=== PATIENT | female | born 1980 | race Caucasian/White ===

== ENCOUNTER 2016-10-03 19:08 | Emergency (ER) | payer MEDICAID, OTHER ==
[2016-10-03] MEDS ORDERED: IPRATROPIUM/ALBUTEROL 3 ML NEB INH STA (19:26)
[2016-10-03] MEDS ORDERED: predniSONE 20 MG TABLET PO STA (19:26)
[2016-10-03] MEDS ORDERED: predniSONE 20 MG TABLET ONE (19:38)
[2016-10-03] MEDS ORDERED: IPRATROPIUM/ALBUTEROL 3 ML NEB INH ONE (19:57)
== END 2016-10-03 20:34 | disposition home or self-care (01) ==
DX: J40 Bronchitis, not specified as acute or chronic (principal); R03.0 Elevated blood-pressure reading, without diagnosis of hypertension
CPT/HCPCS: 94640; 99283; 99284; J7512; J7620

== ENCOUNTER 2016-10-12 | Outpatient (CLI) | payer OTHER | END 2016-10-12 12:17 | disposition short-term general hospital (02) | DX: J96.90 Respiratory failure, unspecified, unspecified whether with hypoxia or hypercapnia (principal) | CPT/HCPCS: A0170; A0425; A0434 ==

== ENCOUNTER 2016-10-12 07:23 | Emergency (ER) | payer OTHER ==
[2016-10-12] MEDS ORDERED: ROCURONIUM 50 MG/5 ML VIAL IVP ONE (07:38)
[2016-10-12] MEDS ORDERED: KETAMINE 500 MG/10 ML VIAL ONE (07:38)
[2016-10-12] MEDS: ALBUTEROL NEB 2.5 MG/3 ML INH STA ×2 (07:40→07:45)
[2016-10-12] MEDS ORDERED: KETAMINE 500 MG/10 ML VIAL IVP STA (07:53)
[2016-10-12] MEDS ORDERED: ROCURONIUM 50 MG/5 ML VIAL IVP STA (07:53)
[2016-10-12] MEDS ORDERED: PROPOFOL 1000 MG/100 ML 100 ML IV ONE ×2 (07:53→10:35)
[2016-10-12] MEDS ORDERED: SODIUM CHLORIDE 0.9% 1,000 ML IV ONE ×3 (07:55→09:25)
[2016-10-12] MEDS ORDERED: methylPREDNISolone SUCCINATE 125 MG/2 ML VIAL IVP STA (07:55)
[2016-10-12] MEDS ORDERED: PROPOFOL 1000 MG/100 ML 100 ML IV STA (07:56)
[2016-10-12] MEDS ORDERED: methylPREDNISolone SUCCINATE 125 MG/2 ML VIAL IVP ONE (07:58)
[2016-10-12] MEDS ORDERED: ALBUTEROL NEB 2.5 MG/3 ML INH ONE ×3 (08:04→08:18)
[2016-10-12] MEDS ORDERED: ALBUTEROL NEB 2.5 MG/3 ML INH STA ×2 (08:18→08:44)
[2016-10-12] MEDS ORDERED: WATER FOR INJECTION,STERILE 10 ML ONE ×3 (08:52→11:39)
[2016-10-12] MEDS ORDERED: VECURONIUM 10 MG VIAL ONE ×3 (08:52→11:39)
[2016-10-12] MEDS ORDERED: VECURONIUM 10 MG VIAL IVP STA ×3 (08:55→11:39)
[2016-10-12] MEDS ORDERED: PIPERACILLIN/TAZOBACTAM 4.5 GM in SODIUM CHLORIDE 0.9% MINIBAG 100 ML IV STA (09:14)
[2016-10-12] MEDS ORDERED: VANCOMYCIN INJ 2 GM in SODIUM CHLORIDE 0.9% 500 ML IV STA (09:14)
[2016-10-12] MEDS ORDERED: IPRATROPIUM/ALBUTEROL 3 ML NEB INH STA (10:47)
[2016-10-12] MEDS ORDERED: IPRATROPIUM/ALBUTEROL 3 ML NEB INH ONE (11:09)
== END 2016-10-12 12:10 | disposition short-term general hospital (02) ==
DX: J96.01 Acute respiratory failure with hypoxia (principal); J96.02 Acute respiratory failure with hypercapnia
CPT/HCPCS: 31500; 36415; 36600; 51702; 71010; 80053; 81001; 81025; 82803; 83605; 83690; 85025; 87040; 87086; 87275; 87276; 93005; 93010; 94640; 96361; 96365; 96367; 96375; 96376; 99291; J3370; J7613; J7620

== ENCOUNTER 2016-11-25 12:08 | Outpatient (CLI) | payer OTHER | END 2016-11-25 12:09 | disposition home or self-care (01) | DX: R05 Cough (principal) ==

== ENCOUNTER 2016-12-01 08:30 | Outpatient (CLI) | payer OTHER ==
[2016-12-01] MEDS ORDERED: ALBUTEROL NEB 2.5 MG/3 ML INH ONE (09:24)
== END 2016-12-01 08:31 | disposition home or self-care (01) ==
DX: R06.2 Wheezing (principal)
CPT/HCPCS: 94060; J7613

== ENCOUNTER 2018-05-03 19:35 | Emergency (ER) | payer OTHER ==
--- NOTE | 2018-05-03 21:16 | ED Physician Documentation ---
PD HPI LOWER EXT INJURY - Stated complaint Stated Complaint: LT FOOT INJ - Chief complaint Chief Complaint: Laceration - History obtained from History obtained from: Patient - History of Present Illness PD HPI LOW EXT INJURY LOCATION: Left, Foot Type of injury: Laceration Where injury occurred: Home Timing - onset: Today Timing - details: Abrupt onset Worsened by: Moving, Palpating Similar symptoms before: Has not had sx before Recently seen: Not recently seen - Additional information Additional information: Patient is a 37 year old female with no significant past medical history who is presenting to the emergency department for foot laceration. patient states that she dropped a salad chef's knife on her foot today causing a small lac. Patient is up to date on his tetanus. Review of Systems Ten Systems: 10 systems reviewed and negative Skin: reports: Laceration (s) PD PAST MEDICAL HISTORY - Past Surgical History Past Surgical History: No - Present Medications Home Medications: Ambulatory Orders Medication Instructions Recorded Confirmed Sulfamethoxazole/Trimethoprim 1 each PO BID #14 tablet 08/05/14 08/06/14 [Bactrim Ds Tablet] cephALEXin [Keflex] 500 mg PO Q6H #28 capsule 08/05/14 08/06/14 predniSONE [Deltasone] 60 mg PO DAILY 5 Days tablet 10/03/16 - Allergies Allergies/Adverse Reactions: Allergies Allergy/AdvReac Type Severity Reaction Status Date / Time No Known Drug Allergies Allergy Verified 08/06/14 08:37 - Social History Does the pt smoke?: No Smoking Status: Never smoker Does the pt drink ETOH?: Yes Does the pt have substance abuse?: No - Immunizations Immunizations are current?: Yes - POLST Patient has POLST: No PD ED PE NORMAL - Vitals Vital signs reviewed: Yes - General General: Alert and oriented X 3 - HEENT HEENT: Atraumatic - Cardiac Cardiac: RRR - Respiratory Respiratory: No respiratory distress - Neuro Neuro: Alert and oriented X 3 Eye Opening: Spontaneous PD ED PE EXPANDED - Extremities Extremities: Left foot (0.7mm lacertation) Feet visual: 1 - laceration Results - Vitals Vitals: Vital Signs - 24 hr 05/03/18 19:51 Temperature 36.6 C Heart Rate 78 Respiratory 16 Rate Blood Pressure 135/94 H O2 Saturation 99 Oxygen O2 Source Room air Procedures - Laceration (location) left foot Length in cm: 0.7 Wound type: Linear Neurovascular status: Sensory intact, Motor intact, Vascular intact Wound Preparation: Irrigated copiously NS Skin layer closure: Dermabond Other: Tetanus UTD Complexity: Simple PD MEDICAL DECISION MAKING - ED course Complexity details: reviewed old records, re-evaluated patient, d/w patient ED course: Patient was seen and examined at bedside. patient was well appearing and in no distress. Patient's laceration was repaired with dermabond. patient required no further work up and was stable for discharge with outpatient follow up. - Sepsis Event Vital Signs: Vital Signs - 24 hr 05/03/18 19:51 Temperature 36.6 C Heart Rate 78 Respiratory 16 Rate Blood Pressure 135/94 H O2 Saturation 99 Oxygen O2 Source Room air Departure - Departure Disposition: 01 Home, Self Care Clinical Impression: Laceration Condition: Good Instructions: ED Laceration Small Superf No Sutr Follow-Up: Manpreet Snyder DO [Primary Care Provider] - Comments: Please keep the laceration clean and dry. You should not scrub the the glue or else it will fall off quickly. You should monitor for signs of infection. You can use ice, motrin, and tylenol as needed for pain.
[2018-05-03 21:29] VITALS: BP 143/87
== END 2018-05-03 21:30 | disposition home or self-care (01) ==
LOC: ED 19:35
DX: S91.312A Laceration without foreign body, left foot, initial encounter (principal); W22.8XXA Striking against or struck by other objects, initial encounter; W26.0XXA Contact with knife, initial encounter; Y92.009 Unspecified place in unspecified non-institutional (private) residence as the place of occurrence of the external cause
CPT/HCPCS: 12001; 99282; 99283

== ENCOUNTER 2020-08-15 08:21 | Outpatient (CLI) | payer OTHER ==
[2020-08-15 09:17] LABS: BASOPHILS % (AUTO) 0.8 %; EOSINOPHILS # (AUTO) 0.1 10^3/uL (0.0-0.7); EOSINOPHILS % (AUTO) 1.7 %; HGB - HEMOGLOBIN 13.2 g/dL (12.0-16.0); LYMPHOCYTES # (AUTO) 1.7 10^3/uL (1.5-3.5); LYMPHOCYTES % (AUTO) 32.7 %; MEAN CORPUSCULAR HEMOGLOBIN 29.8 pg (27.0-31.0); MEAN CORPUSCULAR HGB CONC 32.2 g/dL (32.0-36.0); MEAN CORPUSCULAR VOLUME 92.6 fL (81.0-99.0); MEAN PLATELET VOLUME 9.6 fL (7.9-10.8); MONOCYTES # (AUTO) 0.3 10^3/uL (0.0-1.0); MONOCYTES % (AUTO) 6.4 %; NEUTROPHILS # (AUTO) 3.1 10^3/uL (1.5-6.6); NEUTROPHILS % (AUTO) 58.2 %; PLT - PLATELET COUNT 260 10^3/uL (130-450); RED BLOOD COUNT 4.43 10^6/uL (4.20-5.40); RED CELL DISTRIBUTION WIDTH 11.9 % (12.0-15.0); WHITE BLOOD COUNT 5.3 x10^3/uL (4.8-10.8)
[2020-08-15 09:32] LABS: ALBUMIN 3.8 g/dL (3.2-5.5); ALBUMIN/GLOBULIN RATIO 1.3 (1.0-2.2); ALKALINE PHOSPHATASE 56 IU/L (42-121); ALT ALANINE AMINOTRANSFERASE 17 IU/L (10-60); AST ASPARTATE AMINOTRANSFERASE 16 IU/L (10-42); BILIRUBIN,TOTAL 0.7 mg/dL (0.2-1.0); BUN - BLOOD UREA NITROGEN 16 mg/dL (6-20); CALCIUM 8.7 mg/dL (8.5-10.3); CARBON DIOXIDE - CO2 25 mmol/L (21-32); CHLORIDE 103 mmol/L (101-111); CHOL/HDL RATIO 4.5 (<4.4); CHOLESTEROL 209 mg/dL; CREATININE 0.8 mg/dL (0.4-1.0); GLUCOSE 98 mg/dL (70-100); HDL CHOLESTEROL 46 mg/dL; LDL CHOLESTEROL,CALCULATED 126 mg/dL; LDL/HDL RATIO 2.7 (<4.4); SODIUM 137 mmol/L (135-145); TOTAL PROTEIN 6.8 g/dL (6.7-8.2); VLDL CHOLESTEROL 37 mg/dL
[2020-08-15 09:44] LABS: THYROID STIMULATING HORMONE 0.84 uIU/mL (0.34-5.60)
[2020-08-15 09:46] LABS: FREE T3 3.63 pg/mL (2.5-3.9); FREE T4 (FREE THYROXINE) 0.92 ng/dL (0.58-1.64)
== END 2020-08-15 08:22 | disposition home or self-care (01) ==
LOC: LAB 08:21
PROVIDERS: ATTEND Nurse Practitioner
DX: Z13.29 Encounter for screening for other suspected endocrine disorder (principal); Z13.220 Encounter for screening for lipoid disorders; Z13.228 Encounter for screening for other metabolic disorders; L65.9 Nonscarring hair loss, unspecified
CPT/HCPCS: 36415; 80053; 80061; 83721; 84403; 84439; 84443; 84481; 85025

== ENCOUNTER 2021-07-03 15:19 | Outpatient (CLI) | payer BC ==
--- NOTE | 2021-07-03 17:43 | Ultrasound Report ---
PROCEDURE: Duplex Ext Veins Left INDICATIONS: THROMBOPHLEBITIS TECHNIQUE: Real-time imaging, as well as color and pulse Doppler interrogation, were performed of the lower extr emity deep veins from the inguinal ligament to the popliteal fossa. COMPARISON: None. FINDINGS: The deep veins are normally compressible, and free of intraluminal thrombus. Color and pu lse Doppler demonstrate normal phasic intraluminal flow. There is normal augmentation response to di stal compression maneuver. At the area of clinical concern, nonocclusive superficial venous varicosities can be seen. IMPRESSION: No findings of deep venous thrombosis are seen. Nonocclusive superficial venous varicosities can be seen at the site of clinical concern. Reviewed by: Zaire Ramirez MD on 07/03/2021 4:42 PM [facility] Approved by: Zaire Ramirez MD on 07/03/2021 4:42 PM [facility] Station ID: [id number]
== END 2021-07-03 15:20 | disposition home or self-care (01) ==
LOC: DI 15:19
PROVIDERS: ATTEND Family Medicine
DX: I80.3 Phlebitis and thrombophlebitis of lower extremities, unspecified (principal); I83.92 Asymptomatic varicose veins of left lower extremity

== ENCOUNTER 2023-03-09 10:15 | Outpatient (CLI) | payer BC ==
[2023-03-09 10:32] LABS: BASOPHILS # (AUTO) 0.1 10^3/uL (0.0-0.1); BASOPHILS % (AUTO) 0.7 %; EOSINOPHILS # (AUTO) 0.1 10^3/uL (0.0-0.7); EOSINOPHILS % (AUTO) 1.3 %; HCT - HEMATOCRIT 38.5 % (37.0-47.0); HGB - HEMOGLOBIN 13.1 g/dL (12.0-16.0); LYMPHOCYTES # (AUTO) 1.8 10^3/uL (1.5-3.5); LYMPHOCYTES % (AUTO) 23.4 %; MEAN CORPUSCULAR HEMOGLOBIN 29.8 pg (27.0-31.0); MEAN CORPUSCULAR VOLUME 87.7 fL (81.0-99.0); MEAN PLATELET VOLUME 9.6 fL (7.9-10.8); MONOCYTES # (AUTO) 0.4 10^3/uL (0.0-1.0); MONOCYTES % (AUTO) 5.7 %; NEUTROPHILS # (AUTO) 5.1 10^3/uL (1.5-6.6); NEUTROPHILS % (AUTO) 68.6 %; PLT - PLATELET COUNT 273 10^3/uL (130-450); RED BLOOD COUNT 4.39 10^6/uL (4.20-5.40); WHITE BLOOD COUNT 7.5 x10^3/uL (4.8-10.8)
[2023-03-09 10:52] LABS: % IRON SATURATION 35 % (20-50); ALBUMIN/GLOBULIN RATIO 1.2 (1.0-2.2); ALKALINE PHOSPHATASE 55 IU/L (42-121); ALT ALANINE AMINOTRANSFERASE 19 IU/L (10-60); AST ASPARTATE AMINOTRANSFERASE 18 IU/L (10-42); BILIRUBIN,TOTAL 0.9 mg/dL (0.2-1.0); BUN - BLOOD UREA NITROGEN 13 mg/dL (6-20); CALCIUM 9.1 mg/dL (8.5-10.3); CARBON DIOXIDE - CO2 29 mmol/L (21-32); CHLORIDE 101 mmol/L (101-111); CHOL/HDL RATIO 4.7 (<4.4); CHOLESTEROL 210 mg/dL; CREATININE 0.8 mg/dL (0.4-1.0); GFR - MDRD 79 (>89); GLUCOSE 105 mg/dL (70-100); HDL CHOLESTEROL 45 mg/dL; IRON 115 ug/dL (28-170); LDL CHOLESTEROL,CALCULATED 124 mg/dL; LDL/HDL RATIO 2.8 (<4.4); POTASSIUM 3.3 mmol/L (3.5-5.0); SODIUM 137 mmol/L (135-145); TOTAL IRON BINDING CAPACITY 333 ug/dL (250-450); TOTAL PROTEIN 7.3 g/dL (6.7-8.2); TRANSFERRIN 238 mg/dL (192-382); TRIGLYCERIDES 207 mg/dL; VLDL CHOLESTEROL 41 mg/dL
[2023-03-09 11:03] LABS: FREE T3 3.08 pg/mL (2.5-3.9); THYROID STIMULATING HORMONE 0.64 uIU/mL (0.34-5.60)
[2023-03-09 11:04] LABS: FREE T4 (FREE THYROXINE) 1.1 ng/dL (0.58-1.64)
[2023-03-09 11:09] LABS: FERRITIN 62.6 ng/mL (11.0-306.8)
[2023-03-09 12:02] LABS: ESTIMATED AVERAGE GLUCOSE 114 mg/dL (70-100); HEMOGLOBIN A1c% 5.6 % (4.27-6.07)
[2023-03-10 06:10] LABS: VITAMIN D 25-HYDROXY 14.3 ng/mL (30.0-100.0)
[2023-03-10 16:08] LABS: FREE TESTOSTERONE(DIRECT) 1.9 pg/mL (0.0-4.2)
== END 2023-03-09 10:16 | disposition home or self-care (01) ==
LOC: LAB 10:15
PROVIDERS: ATTEND Physician Assistant
DX: L65.9 Nonscarring hair loss, unspecified (principal); Z13.9 Encounter for screening, unspecified; Z86.32 Personal history of gestational diabetes
CPT/HCPCS: 36415; 80053; 80061; 82306; 82626; 82728; 83036; 83540; 83721; 84402; 84403; 84439; 84443; 84466; 84481; 85025

== ENCOUNTER 2023-08-29 07:38 | Outpatient (CLI) | payer OTHER | END 2023-08-29 07:39 | disposition home or self-care (01) | LOC: LAB 07:38 | PROVIDERS: ATTEND Physician Assistant | DX: E55.9 Vitamin D deficiency, unspecified (principal) | CPT/HCPCS: 36415; 82306 ==

== ENCOUNTER 2024-02-17 14:04 | Outpatient (CLI) | payer OTHER | END 2024-02-17 14:05 | disposition home or self-care (01) | LOC: LAB 14:04 | PROVIDERS: ATTEND Physician Assistant | DX: E55.9 Vitamin D deficiency, unspecified (principal) | CPT/HCPCS: 36415; 82306 ==

== ENCOUNTER 2024-03-09 07:21 | Outpatient (CLI) | payer OTHER ==
[2024-03-09 07:41] LABS: BASOPHILS % (AUTO) 0.6 %; EOSINOPHILS # (AUTO) 0.1 10^3/uL (0.0-0.7); EOSINOPHILS % (AUTO) 2.1 %; HCT - HEMATOCRIT 39.8 % (37.0-47.0); HGB - HEMOGLOBIN 12.9 g/dL (12.0-16.0); LYMPHOCYTES % (AUTO) 30.3 %; MEAN CORPUSCULAR HEMOGLOBIN 30.2 pg (27.0-31.0); MEAN CORPUSCULAR HGB CONC 32.4 g/dL (32.0-36.0); MEAN CORPUSCULAR VOLUME 93.2 fL (81.0-99.0); MEAN PLATELET VOLUME 9.6 fL (7.9-10.8); MONOCYTES # (AUTO) 0.4 10^3/uL (0.0-1.0); MONOCYTES % (AUTO) 5.7 %; NEUTROPHILS # (AUTO) 4.1 10^3/uL (1.5-6.6); NEUTROPHILS % (AUTO) 61.1 %; PLT - PLATELET COUNT 267 10^3/uL (130-450); RED BLOOD COUNT 4.27 10^6/uL (4.20-5.40); RED CELL DISTRIBUTION WIDTH 12.7 % (12.0-15.0); WHITE BLOOD COUNT 6.6 x10^3/uL (4.8-10.8)
[2024-03-09 07:54] LABS: ALBUMIN 4.1 g/dL (3.2-5.5); ALBUMIN/GLOBULIN RATIO 1.5 (1.0-2.2); ALKALINE PHOSPHATASE 59 IU/L (42-121); ALT ALANINE AMINOTRANSFERASE 22 IU/L (10-60); AST ASPARTATE AMINOTRANSFERASE 18 IU/L (10-42); BILIRUBIN,TOTAL 0.6 mg/dL (0.2-1.0); BUN - BLOOD UREA NITROGEN 14 mg/dL (6-20); CALCIUM 9.4 mg/dL (8.5-10.3); CARBON DIOXIDE - CO2 26 mmol/L (21-32); CHLORIDE 104 mmol/L (101-111); CHOL/HDL RATIO 2.8 (<4.4); CHOLESTEROL 202 mg/dL; CREATININE 0.8 mg/dL (0.6-1.3); GFR - MDRD 79 (>89); GLUCOSE 98 mg/dL (74-104); HDL CHOLESTEROL 71 mg/dL; LDL CHOLESTEROL,CALCULATED 92 mg/dL; LDL/HDL RATIO 1.3 (<4.4); PHOSPHORUS 3.9 mg/dL (2.5-5.0); POTASSIUM 4.1 mmol/L (3.5-4.5); SODIUM 136 mmol/L (135-145); TOTAL PROTEIN 6.8 g/dL (6.4-8.9); TRIGLYCERIDES 196 mg/dL (48-352); VLDL CHOLESTEROL 39 mg/dL
[2024-03-09 08:38] LABS: THYROID STIMULATING HORMONE 1.29 uIU/mL (0.34-5.60)
== END 2024-03-09 07:22 | disposition home or self-care (01) ==
LOC: LAB 07:21
PROVIDERS: ATTEND Physician Assistant
DX: E55.9 Vitamin D deficiency, unspecified (principal); Z13.9 Encounter for screening, unspecified
CPT/HCPCS: 36415; 80053; 80061; 83721; 83970; 84100; 84443; 85025; 86364